=== PATIENT | female | born 1995 | race Caucasian/White ===

== ENCOUNTER 2018-02-01 16:45 | Emergency (ER) | payer MEDICAID ==
[2018-02-01 17:14] VITALS: TEMP 98.7
--- NOTE | 2018-02-01 18:20 | ED PDOC ---
Arrival/HPI - General Chief Complaint: Female Genitourinary Time Seen by Provider: 02/01/18 17:53 Historian: Patient - History of Present Illness Narrative History of Present Illness (Text): 02/01/18 18:18 Pt is a 22 yr old 2wks GA, who present with cramping and vaginally bleeding since last night. pt says she noticed large clots last night which has since ceased. Denies fever, chills, n/v/d, Time/Duration: Prior to Arrival Symptom Onset: Sudden Quality: Cramping Severity Level: 6 Activities at Onset: Rest Context: Home Past Medical History - Provider Review Nursing Documentation Reviewed: Yes - Travel History Have you recently traveled outside [place] w/in the past 3 mons?: No - Infectious Disease Hx of Infectious Diseases: None - Cardiac Hx Cardiac Disorders: No - Pulmonary Hx Respiratory Disorders: No - Neurological Hx Neurological Disorder: No - HEENT Hx HEENT Disorder: No - Renal Hx Renal Disorder: No - Endocrine/Metabolic Hx Endocrine Disorders: No - Hematological/Oncological Hx Blood Disorders: No - Integumentary Hx Dermatological Disorder: No - Musculoskeletal/Rheumatological Hx Musculoskeletal Disorders: No - Gastrointestinal Hx Gastrointestinal Disorders: No - Genitourinary/Gynecological Hx Genitourinary Disorders: No - Psychiatric Hx Psychophysiologic Disorder: No Hx Substance Use: No - Anesthesia Hx Anesthesia: No Hx Anesthesia Reactions: No Hx Malignant Hyperthermia: No Family/Social History - Physician Review Nursing Documentation Reviewed: Yes Family/Social History: Unknown Family HX Smoking Status: Never Smoked Hx Alcohol Use: No Hx Substance Use: No Allergies/Home Meds Allergies/Adverse Reactions: Allergies No Known Allergies Allergy (Verified 02/01/18 17:13) Review of Systems - Review of Systems Constitutional: Normal Eyes: Normal ENT: Normal Respiratory: Normal Cardiovascular: Normal Gastrointestinal: Normal Genitourinary Female: Normal, Vaginal Bleeding Musculoskeletal: Normal Skin: Normal Neurological: Normal Endocrine: Normal Hemo/Lymphatic: Normal Psychiatric: Normal Physical Exam Vital Signs Reviewed: Yes Vital Signs Temp Pulse Resp BP Pulse Ox 02/01/18 20:11 78 18 116/75 100 02/01/18 17:13 98.7 F 80 19 118/77 99 Temperature: Afebrile Blood Pressure: Normal Pulse: Regular Respiratory Rate: Normal Appearance: Positive for: Well-Appearing, Non-Toxic, Comfortable Pain Distress: Moderate Mental Status: Positive for: Alert and Oriented X 3 - Systems Exam Head: Present: Atraumatic, Normocephalic Respiratory/Chest: Present: Clear to Auscultation, Good Air Exchange. No: Respiratory Distress, Accessory Muscle Use Cardiovascular: Present: Regular Rate and Rhythm, Normal S1, S2. No: Murmurs Abdomen: No: Tenderness, Distention, Peritoneal Signs Genitourinary/Pelvic Exam: Present: Normal External Genitalia, Vaginal Bleeding (copious dc and clots). No: Vaginal Lesions, Adenexal Tenderness, Adenexal Mass , Cervical Motion Tendernes, Cervical os Closed (cervix soft and os open by approx .5cm), Odor Back: Present: Normal Inspection Upper Extremity: Present: Normal Inspection. No: Cyanosis, Edema Lower Extremity: Present: Normal Inspection. No: Edema Neurological: Present: GCS=15, CN II-XII Intact, Speech Normal Skin: Present: Warm, Dry, Normal Color. No: Rashes Psychiatric: Present: Alert, Oriented x 3, Normal Insight, Normal Concentration Medical Decision Making ED Course and Treatment: 02/01/18 19:33 Pt is a 22 yr old 2wks GA, who present with cramping and vaginally bleeding since last night. pt says she noticed large clots last night which has since ceased. Denies fever, chills, n/v/d, Plan beta hcg pelvic exam Progress Note pt continues to have bloody dc and clots with cramping Pelvic exam reveals a open cervical OS and softness to palpation dispo home with medication for cramps and advised to see UNDERGROUND FOREMAN tomorrow pt actively bleeding from vagina as pt does during menses VSS-->hemodynamically stable advised pt to f/u with UNDERGROUND FOREMAN 02/01/18 19:46 - Lab Interpretations Lab Results: Lab Results 02/01/18 19:40: Urine Color Yellow, Urine Appearance Clear, Urine pH 7.5, Ur Specific Imperial 1.015, Urine Protein Trace H, Urine Glucose (UA) Negative, Urine Ketones Negative, Urine Blood Large H, Urine Nitrate Negative, Urine Bilirubin Negative, Urine Urobilinogen 0.2, Ur Leukocyte Esterase Negative, Urine RBC 20 - 25, Urine WBC 0 - 2, Ur Epithelial Cells 0 - 2 02/01/18 18:40: Beta HCG, Quant 10.35 H I have reviewed the lab results: Yes (Beta hcg 10.35) Disposition/Present on Arrival - Present on Arrival Any Indicators Present on Arrival: Yes History of DVT/PE: No History of Uncontrolled Diabetes: No Urinary Catheter: No History of Decub. Ulcer: No History Surgical Site Infection Following: None - Disposition Have Diagnosis and Disposition been Completed?: Yes Diagnosis: Spontaneous , Vaginal bleeding affecting early Disposition: HOME/ ROUTINE Disposition Time: 19:37 Patient Plan: Discharge Condition: GOOD Discharge Instructions (ExitCare): Bleeding With , Dealing With Miscarriage Additional Instructions: Elizabeth, thank you for letting us take care of you today. Your provider was SHARON Norman. You were treated for Possible Miscarriage. The emergency medical care you received today was directed at your acute symptoms. If you were prescribed any medication, please fill it and take as directed. It may take several days for your symptoms to resolve. Return to the Emergency Department if your symptoms worsen, do not improve, or if you have any other problems. Please see your UNDERGROUND FOREMAN tomorrow in the office for follow up care Please contact your doctor or call one of the physicians/clinics you have been referred to that are listed on the Patient Visit Information form that is included in your discharge packet. Bring any paperwork you were given at discharge with you along with any medications you are taking to your follow up visit. Our treatment cannot replace ongoing medical care by a primary care provider (PCP) outside of the emergency department. Thank you for allowing the [facility] team to be part of your care today. If you had a blood, urine, or wound culture: It will take several days for the results, if any change in treatment is needed we will contact you. Prescriptions: Acetaminophen 325 mg PO Q6 3 Days #12 tablet Referrals: Praveen Bishop MD [Primary Care Provider] - Follow up with primary Forms: [employer] (Japanese)
[2018-02-01 19:47] LABS: PH,URINE 7.5 (4.7-8.0); URINE BILIRUBIN NEGATIVE (NEGATIVE); URINE BLOOD LARGE (NEGATIVE); URINE GLUCOSE (UA) NEGATIVE (NEGATIVE); URINE LEUKOCYTE ESTERASE NEGATIVE Leu/uL (NEGATIVE); URINE PROTEIN TRACE mg/dL (<30 mg/dL); URINE UROBILINOGEN 0.2 E.U./dL (<1 E.U./dL)
[2018-02-01 19:48] LABS: URINE APPEARANCE CLEAR (CLEAR); URINE COLOR YELLOW (YELLOW)
[2018-02-01 19:55] LABS: URINE EPITHELIAL CELLS 0 - 2 /hpf (0-5); URINE RBC 20 - 25 /hpf (0-2); URINE WBC 0 - 2 /hpf (0-6)
[2018-02-01 20:12] VITALS: BP 116/75; PULSE 78; RESP 18; O2SAT 100
== END 2018-02-01 20:11 | disposition home or self-care (01) ==
LOC: ED 16:45
DX: O03.9 Complete or unspecified spontaneous abortion without complication (principal)